=== PATIENT | female | born 1990 | race Caucasian/White ===

== ENCOUNTER 2017-12-14 07:54 | Day surgery (SDC) | payer OTHER ==
--- NOTE | 2017-12-14 08:54 | CP.SDSHP ---
Same Day Surgery H & P - History Proposed Procedure: EGD and colonoscopy Pre-Op Diagnosis: abdominal pain and chronic constipation - Allergies Allergies: Allergies No Known Allergies Allergy (Verified 12/11/17 09:14) - Physical Exam Vital Signs: Vital Signs 12/14/17 08:15 Temperature 98 F Pulse Rate 87 Respiratory 18 Rate Blood Pressure 108/63 O2 Sat by Pulse 99 Oximetry Mental Status: Alert & Oriented x3 Neuro: WNL Heart: WNL Lungs: WNL GI: WNL - {Optional Preform as Required} Abdomen: WNL - Impression Impression: proceed with planned procedure Pt. Evaluated Today:Candidate for Anesthesia & Procedure: Yes Short Stay Discharge - Short Stay Discharge Admitting Diagnosis/Reason for Visit: CONSTIPATION / ABDOMINAL PAIN Disposition: HOME/ ROUTINE Referrals: Primitivo Nicholas MD [Primary Care Provider] -
[2017-12-14] MEDS ORDERED: Propofol 10 mg/ml Inj (20 ML) ONE ×2 (08:58→09:08)
[2017-12-14] MEDS ORDERED: Midazolam 2 MG/2 ML VIAL ONE (08:58)
[2017-12-14 10:09] VITALS: TEMP 97.8; O2SAT 100
[2017-12-14 10:44] VITALS: RESP 15
[2017-12-14 10:56] VITALS: BP 100/54; PULSE 56
== END 2017-12-14 10:40 | disposition home or self-care (01) ==
LOC: C.ENDO 07:54
PROVIDERS: ATTEND Internal Medicine Gastroenterology
DX: K29.50 Unspecified chronic gastritis without bleeding (principal); K63.89 Other specified diseases of intestine; K59.09 Other constipation
CPT/HCPCS: 43239; 45380; 84703; 88305; J2250; J2704